=== PATIENT | male | born 1965 | race Caucasian/White ===

== ENCOUNTER 2018-09-18 08:56 | Day surgery (SDC) | payer BC, OTHER ==
[~2018-09-18 08:56] MED LIST: Lactated Ringers 1,000 ML IV SCH; Sodium Chloride 0.9% 10 ML Syringe FLUSH PRN
[2018-09-18] MEDS ORDERED: Propofol 200 MG/20 ML SDV IV ONE (08:57)
[2018-09-18] MEDS ORDERED: Lidocaine 1% PF 2 ML SDV INJECT ONE (08:57)
[2018-09-18] MEDS ORDERED: Lactated Ringers 1,000 ML IV SCH (09:00)
--- NOTE | 2018-09-18 10:28 | PCM.OPNOTE ---
- General Post-Op/Procedure Note Date of Surgery/Procedure: 09/18/18 Operative Procedure(s): c scope with bx Findings: cecal polyp Pre Op Diagnosis: screening Post-Op Diagnosis: colon polyp Anesthesia Technique: Moderate Sedation Primary Surgeon: Alton Moore Anesthesia Provider: Luigi Sagastume Pathology: cecal polyp Complications: None Condition: Good Free Text/Narrative:: dictation
--- NOTE | 2018-09-18 15:10 | OR ---
DATE OF OPERATION: 09/18/2018 SURGEON: Alton Moore MD PROCEDURE PERFORMED: Colonoscopy with cold forceps biopsy. PREOPERATIVE DIAGNOSIS: Need for screening colonoscopy. POSTOPERATIVE DIAGNOSIS: Cecal polyp. INDICATIONS FOR PROCEDURE: This is a 53-year-old white male who presents for his initial screening colonoscopy. DESCRIPTION OF PROCEDURE: After an excellent IV sedation was administered, digital rectal exam was performed. No marked abnormality was noted. The flexible colonoscope was inserted and advanced to the cecum. Prep was excellent. The following findings were noted. Ascending colon, in the cecum, a small polyp, photo and biopsies were taken. Transverse colon, unremarkable. Descending colon, unremarkable. Sigmoid and rectum essentially unremarkable. He did have evidence of some irritation, which can be seen with a bowel prep. In addition, the patient had a bout of gastroenteritis last week, which has resolved as well, that explains the appearance. In any event, there were no findings that appeared to warrant a biopsy of any kind. The patient tolerated the procedure well. Results will be sent by letter. /[id number] /MODL
== END 2018-09-18 11:24 | disposition home or self-care (01) ==
LOC: FB.SDS 08:56
PROVIDERS: ATTEND Surgery
DX: Z12.11 Encounter for screening for malignant neoplasm of colon (principal); D12.0 Benign neoplasm of cecum; E78.2 Mixed hyperlipidemia
CPT/HCPCS: 45380; J2001; J2704; J7120; 88305